=== PATIENT | female | born 1980 | race Caucasian/White ===

== ENCOUNTER 2019-05-16 09:27 | Emergency (ER) | payer MEDICAID ==
[~2019-05-16] VITALS: Ht 157.5 cm; Wt 81.6 kg
[2019-05-16 09:30] VITALS: BP_SYST 143
[2019-05-16 10:28] VITALS: BP_SYST 143
== END 2019-05-16 10:28 | disposition home or self-care (01) ==
LOC: SED 09:27
DX: R05 Cough (principal); R03.0 Elevated blood-pressure reading, without diagnosis of hypertension
CPT/HCPCS: 99283

== ENCOUNTER 2019-07-17 08:51 | Emergency (ER) | payer MEDICAID ==
[~2019-07-17] VITALS: Ht 160 cm; Wt 79.4 kg
--- NOTE | 2019-07-17 09:40 | NUR ---
Patient to ER bed 4 to gown for evaluation. Side rails up.
[2019-07-17 09:46] VITALS: BP_SYST 113
--- NOTE | 2019-07-17 09:50 | NUR ---
Pt c/o WELLS, sore throat, and body aches since 07/13. Pt is AO4, RR even and unlabored with slight cough, no apparent distess
--- NOTE | 2019-07-17 10:25 | NUR ---
ER at bedside examining patient.
--- NOTE | 2019-07-17 10:30 | NUR ---
Influenza lab result negative. pt is stable, but continues to cough.
[2019-07-17 10:58] VITALS: BP_SYST 113
--- NOTE | 2019-07-17 11:12 | NUR ---
Patient given written and verbal discharge instructions and verbalizes understanding. ER MD discussed with patient the results and treatment provided. Patient in stable condition. ID arm band removed. Rx of naprosyn and RObitussin DM given. Patient educated on pain management and to follow up with PMD. Pain Scale . Opportunity for questions provided and answered. Medication side effect fact sheet provided.
== END 2019-07-17 11:12 | disposition home or self-care (01) ==
LOC: SED 08:51
DX: J11.1 Influenza due to unidentified influenza virus with other respiratory manifestations (principal); M79.10 Myalgia, unspecified site
CPT/HCPCS: 36415; 86710; 99283